=== PATIENT | female | born 1990 | race Caucasian/White ===

== ENCOUNTER 2017-05-27 18:05 | Emergency (ER) | payer MEDICAID, OTHER ==
[2017-05-27 18:23] VITALS: O2SAT 98
[2017-05-27] MEDS ORDERED: NORCO 5/325 MG PO ONE ×2 (18:28→18:56)
[2017-05-27] MEDS ORDERED: NORCO 5/325 MG ONE ×2 (18:31→19:07)
--- NOTE | 2017-05-27 18:45 | ERPHSYRPT ---
- History of Present Illness Time Seen by Provider: 05/27/17 18:38 Source: patient, family () Patient Subjective Stated Complaint: pt reports tripping and turning left ankle- reports swelling and pain Triage Nursing Assessment: pt pink warm and [id number] amount of swelling noted to right ankle Physician History: CC: left ankle pain Hx: 26 y/o healthy patient ate dinner at [facility] with her . They were walking out and he stepped on her shoe accidently and she twisted the left ankle. She has pain, swelling to the left ankle. Pain is moderate. Unable to bear weight. No other injuries. Current menses is normal. Severity of Pain-Max: severe Severity of Pain-Current: moderate Lower Extremities Pain: ankle: left Associated Symptoms: unable to bear weight Allergies/Adverse Reactions: No Known Drug Allergies Allergy (Unverified 05/27/17 18:22) Hx Tetanus, Diphtheria Vaccination/Date Given: Yes Hx Influenza Vaccination/Date Given: No Hx Pneumococcal Vaccination/Date Given: No Immunizations Up to Date: Yes - Review of Systems Constitutional: No Symptoms Abdominal/Gastrointestinal: No Nausea, No Vomiting Musculoskeletal: Injury, Joint Pain (left ankle), No Back Pain, No Neck Pain Neurological: No Focal Weakness, No Parasthesia All Other Systems: Reviewed and Negative - Past Medical History Pertinent Past Medical History: No - Past Surgical History Past Surgical History: Yes Gastrointestinal: Appendectomy - Social History Smoking Status: Current every day smoker How long have you smoked: yrs Exposure to second hand smoke: No Drug Use: none Patient Lives Alone: No - Female History Hx Last Menstrual Period: currenlty Hx Now: No - Nursing Vital Signs Nursing Vital Signs: Initial Vital Signs Temperature 97.8 F 05/27/17 18:22 Pulse Rate 120 H 05/27/17 18:22 Respiratory Rate 20 18 18:22 Blood Pressure 157/94 05/27/17 18:22 O2 Sat by Pulse Oximetry 98 05/27/17 18:22 Pain Scale Pain Intensity 8 - Physical Exam General Appearance: alert Neck Exam: supple Cardiovascular/Respiratory Exam: regular rate/rhythm Neuro/Tendon Exam: normal sensation, normal motor functions Mental Status Exam: alert, oriented x 3, cooperative Skin Exam: warm, dry SpO2 Interpretation: normal SpO2: 98 Oxygen Delivery: Room Air Comments: tender left ankle with lateral malleolus swelling and tenderness. No foot tenderness. No fibular head or hip tenderness. Skin intact. Pulses intact. - Course Nursing assessment & vital signs reviewed: Yes - Radiology Exams left ankle X-ray Interpretation: Interpreted by me (nondisplaced distal fibular fracture) Ordered Tests: Active Orders 24 hr Category Date Time Status Cold Application STAT Care 05/27/17 18:23 Active Crutches STAT Care 05/27/17 18:55 Active NPO (ED) STAT Care 05/27/17 18:29 Active Splint STAT Care 05/27/17 18:55 Active ANKLE (3 VIEWS) Stat Exams 05/27/17 18:28 Taken Medication Summary Discontinued Medications Generic Name Dose Route Start Last Admin Trade Name Freq PRN Reason Stop Dose Admin Hydrocodone Bitart/Acetaminophen 1 tab 05/27/17 18:28 05/27/17 18:32 [place] 5/325 Mg PO 05/27/17 18:29 1 tab STAT ONE Administration Hydrocodone Bitart/Acetaminophen Confirm 05/27/17 18:31 [place] 5/325 Mg Administered 05/27/17 18:32 Dose 1 tab .ROUTE .STK-MED ONE Hydrocodone Bitart/Acetaminophen 2 tab 05/27/17 18:56 [place] 5/325 Mg PO 05/27/17 18:57 SENT HOME W/ PATIENT ONE - Progress Progress Note: 05/27/17 18:59 She plans to follow up with Dr Fuentes. Will use CAM boot and crutches. Counseled pt/family regarding: diagnosis, need for follow-up, rad results - Departure Time of Disposition: 18:59 Departure Disposition: Home Clinical Impression: Closed fracture of left distal fibula Qualifiers: Encounter type: initial encounter Fracture morphology: other fracture Qualified Code(s): S82.832A - Other fracture of upper and lower end of left fibula, initial encounter for closed fracture Condition: Stable Critical Care Time: No Referrals: AARON FUENTES [Primary Care Provider] - Instructions: Ankle Fracture (DC), How to Use Crutches Additional Instructions: CAM boot Crutches with no weight bearing [place] every 6 hours for pain- no driving or operating machinery Follow up with Dr Fuentes Monday or Return for problems or concerns Ice, rest, elevate Prescriptions: Hydrocodone Bit/Acetaminophen [[place] 5-325 Tablet] 1 each PO Q6H PRN PRN #20 tablet MDD 4 PRN Reason: Pain
[2017-05-27 19:26] VITALS: BP 158/85; PULSE 112
--- NOTE | 2017-05-27 21:29 | XRAY ---
Indication: Lateral ankle pain. Comparison: None 3 views of the left ankle demonstrates nondisplaced lateral malleolar transverse fracture with soft tissue swelling. Tiny posterior heel spur. No other bony, articular, or soft tissue abnormalities.
== END 2017-05-27 19:24 | disposition home or self-care (01) ==
LOC: ED 18:05
DX: S82.832A Other fracture of upper and lower end of left fibula, initial encounter for closed fracture (principal); W50.0XXA Accidental hit or strike by another person, initial encounter
CPT/HCPCS: 73610; 99283; L4386; A9270-GY